=== PATIENT | female | born 1960 | race Hispanic/Latino ===

== ENCOUNTER 2017-07-15 13:19 | Emergency (ER) | payer OTHER ==
[2017-07-15 13:42] VITALS: BMI 24.3
[2017-07-15 13:49] VITALS: RESP 16
--- NOTE | 2017-07-15 13:55 | ED PDOC ---
Arrival/HPI - General Chief Complaint: Bite Time Seen by Provider: 07/15/17 13:37 Historian: Patient - History of Present Illness Narrative History of Present Illness (Text): 07/15/17 13:40 A 56 year old female, whose past medical history includes diabetes, breast cancer (in remission), and hypothyroidism, presents to the emergency department complaining of bug bite. Patient reports she went to sleep 5 days ago and the next day awoke with bite. Patient states she applied creams and hot compresses but bite has gotten progressively worse. Bite was itchy before, but now is sore and painful to the touch. Patient has no other complaints. No PMD Past Medical History - Provider Review Nursing Documentation Reviewed: Yes - Reproductive Menopause: Yes - Cardiac Hx Cardiac Disorders: No Hx Angina: No Hx Cardiac Arrhythmia: No Hx Circulatory Problems: No Hx Congestive Heart Failure: No Hx Heart Murmur: No Hx Heart Transplant: No Hx Hypertension: No Hx Internal Defibrillator: No Hx Mitral Valve Prolapse: No Hx Pacemaker: No Hx Peripheral Edema: No Hx Peripheral Vascular Disease: No - Pulmonary Hx Respiratory Disorders: Yes Hx Asthma: No Hx Bronchitis: Yes Hx Chronic Obstructive Pulmonary Disease (COPD): No Hx Emphysema: No Hx Pneumonia: No Hx Respiratory Aspiration: No Hx Respiratory Tract Infection: No Hx Sleep Apnea: No Hx Tuberculosis: No - Neurological Hx Neurological Disorder: Yes (neuropathy hands and feet) Hx Alzheimer's Disease: No HX Cerebrovascular Accident: No Hx Dementia: No Hx Dizziness: No Hx Meningitis: No Hx Migraine: No Hx Parkinson's Disease: No Hx Seizures: No Hx Transient Ischemic Attacks (TIA): No - HEENT Hx HEENT Disorder: No Hx Blind: No Hx Cataracts: No Hx Deafness: No Hx Difficulty Chewing: No Hx Epistaxis: No Hx Glaucoma: No Hx Macular Degeneration: No - Renal Hx Renal Disorder: No Hx Dialysis: No Hx Kidney Stones: No Hx Neurogenic Bladder: No Hx Pyelonephritis: No Hx Renal Cancer: No Hx Renal Failure: No - Endocrine/Metabolic Hx Endocrine Disorders: Yes Hx Adrenal Cancer: No Hx Diabetes Insipidus: No Hx Diabetes Mellitus Type 1: No Hx Diabetes Mellitus Type 2: Yes Hx Hyperthyroidism: No Hx Hypothyroidism: Yes Hx Systemic Lupus Erythematosus: No - Hematological/Oncological Hx Blood Transfusions: No Hx Cancer: Yes (Breast Ca 2015) - Integumentary Hx Dermatological Disorder: No Hx Basal Cell Carcinoma: No Hx Eczema: No Hx Melanoma: No Hx Psoriasis: No Hx Squamous Cell Carcinoma: No - Musculoskeletal/Rheumatological Hx Falls: Yes (tripped on the sidewalk) - Gastrointestinal Hx Gastrointestinal Disorders: Yes Hx Colostomy: No Hx Crohn's Disease: No Hx Diverticulitis: No Hx Gall Bladder Disease: No Hx Gastroesophageal Reflux: Yes Hx Gastrointestinal Ulcer: No Hx Ileostomy: No Hx Liver Failure: No Hx Pancreatitis: No HX Swallowing Problems: No - Genitourinary/Gynecological Hx Genitourinary Disorders: No Hx Hematuria: No Hx Incontinence: No Hx Prostate Problems: No Hx Sexually Transmitted Diseases: No Hx Urinary Tract Infection: No - Psychiatric Hx Psychophysiologic Disorder: Yes Hx Anxiety: Yes Hx Bipolar Disorder: No Hx Depression: Yes Hx Emotional Abuse: No Hx Hallucinations: No Hx Panic Disorder: No Hx Post Traumatic Stress Disorder: No Hx Psychosis: No Hx Physical Abuse: No Hx Schizophrenia: No Hx Sexual Abuse: No Hx Substance Use: No - Surgical History Hx Breast Biopsy: Yes - Anesthesia Hx Anesthesia Reactions: Yes (NAUSEA) Hx Malignant Hyperthermia: No - Suicidal Assessment Feels Threatened In Home Enviroment: No Family/Social History - Physician Review Nursing Documentation Reviewed: Yes Family/Social History: No Known Family HX Smoking Status: Current Some Days Smoker Hx Alcohol Use: Yes (occassional wine) Frequency of alcohol use: Socially Hx Substance Use: No Allergies/Home Meds Allergies/Adverse Reactions: Allergies No Known Allergies Allergy (Verified 11/25/16 15:22) Home Medications: Home Meds Medication Instructions Recorded Confirmed Insulin Detemir [Levemir] 30 unit SC HS 05/08/14 07/15/17 Exemestane [Aromasin] 25 mg PO DAILY 06/16/16 07/15/17 Gabapentin [Neurontin] 300 mg PO TID 06/16/16 07/15/17 metFORMIN [glucOPHAGE] 500 mg PO TID 06/16/16 07/15/17 Review of Systems - Physician Review All systems were reviewed & negative as marked: Yes - Review of Systems Constitutional: absent: Other (no other complaints ) Skin: Other (bug bite) Physical Exam Vital Signs Reviewed: Yes Vital Signs Temp Pulse Resp BP Pulse Ox 07/15/17 13:42 98.4 F 90 16 115/72 98 Temperature: Afebrile Blood Pressure: Normal Pulse: Regular Respiratory Rate: Normal Appearance: Positive for: Well-Appearing Pain Distress: None Mental Status: Positive for: Alert and Oriented X 3 - Systems Exam Head: Present: Atraumatic, Normocephalic Pupils: Present: PERRL Extroacular Muscles: Present: EOMI Conjunctiva: Present: Normal Mouth: Present: Moist Mucous Membranes Neck: Present: Normal Range of Motion Respiratory/Chest: Present: Clear to Auscultation, Good Air Exchange. No: Respiratory Distress, Accessory Muscle Use Cardiovascular: Present: Regular Rate and Rhythm, Normal S1, S2. No: Murmurs Abdomen: Present: Normal Bowel Sounds. No: Tenderness, Distention, Peritoneal Signs Back: Present: Normal Inspection Upper Extremity: Present: Normal Inspection. No: Cyanosis, Edema Lower Extremity: Present: Normal Inspection. No: Edema Neurological: Present: GCS=15, CN II-XII Intact, Speech Normal Skin: Present: Other (bug bite to abdomen, tender and firm to touch with central darkened area, no discharge.) Psychiatric: Present: Alert, Oriented x 3, Normal Insight, Normal Concentration Medical Decision Making ED Course and Treatment: 07/15/17 13:50 Impression: 56 year old female with bug bite. Plan: -- Reassess and disposition Prior Visits: Notes and results from previous visits were reviewed. Patient was last seen in the emergency department on 11/25/2016 for mid sternal chest pain. Patient was admitted. Progress Notes: 07/15/17 14:57 Abscess bug bite wound opened with Lidocaine 2%, and cleaned with silver nitrate. Patient was able to tolerate procedure well. - Medication Orders Current Medication Orders: Discontinued Medications Bacitracin (Bacitracin) 1 ea TOP STAT STA Stop: 07/15/17 14:53 Lidocaine HCl (Lidocaine 2% 20ml Vial) 2 ml IJ ONCE STA Stop: 07/15/17 14:16 Silver Nitrate (Silver Nitrate Topical Stick) 1 swa TOP ONCE ONE Stop: 07/15/17 14:43 Tetanus/Reduced Diphtheria/Acell Pertussis (Boostrix Vaccine Inj) 0.5 ml IM .ONCE ONE Stop: 07/15/17 14:50 - Scribe Statement The provider has reviewed the documentation as recorded by the Juanito France Provider Scribe Attestation: All medical record entries made by the Scribe were at my direction and personally dictated by me. I have reviewed the chart and agree that the record accurately reflects my personal performance of the history, physical exam, medical decision making, and the department course for this patient. I have also personally directed, reviewed, and agree with the discharge instructions and disposition. Disposition/Present on Arrival - Present on Arrival Any Indicators Present on Arrival: No History of DVT/PE: No History of Uncontrolled Diabetes: No Urinary Catheter: No History of Decub. Ulcer: No History Surgical Site Infection Following: None - Disposition Have Diagnosis and Disposition been Completed?: Yes Diagnosis: Abscess Disposition: HOME/ ROUTINE Disposition Time: 15:00 Patient Problems: Current Active Problems Problem Status Onset Abscess Acute Condition: STABLE Discharge Instructions (ExitCare): Abscess (ED), Abscess (GEN) Additional Instructions: Warm compresses or soaks starting tomorrow. see your doctor or return to ER for increasing swelling or redness. Prescriptions: Amoxicillin/Clavulanate [Augmentin 875 MG-125 MG] 1 tab PO BID #14 tab Forms: [employer] ([place])
[2017-07-15] MEDS ORDERED: Lidocaine 2% Inj (20ml) IJ STA (14:15)
[2017-07-15] MEDS ORDERED: Silver Nitrate Topical - Stick TOP ONE (14:42)
[2017-07-15] MEDS ORDERED: TDAP Vaccine 0.5 mL Syr IM ONE (14:49)
[2017-07-15] MEDS ORDERED: Bacitracin Ointment 30 GM TUBE TOP STA (14:50)
[2017-07-15] MEDS ORDERED: Bacitracin 500 Units/gm Oint Foilpak UD TOP STA (14:52)
[2017-07-15 15:32] VITALS: BP 115/71; PULSE 77; TEMP 98.1; O2SAT 99
== END 2017-07-15 15:20 | disposition home or self-care (01) ==
LOC: ED 13:19
DX: L02.211 Cutaneous abscess of abdominal wall (principal); Z23 Encounter for immunization; E11.9 Type 2 diabetes mellitus without complications; E03.9 Hypothyroidism, unspecified; Z79.4 Long term (current) use of insulin; Z85.3 Personal history of malignant neoplasm of breast

== ENCOUNTER 2017-07-28 17:48 | Emergency (ER) | payer OTHER ==
[2017-07-28 17:49] VITALS: BMI 24.3
--- NOTE | 2017-07-28 17:58 | ED PDOC ---
Arrival/HPI - General Time Seen by Provider: 07/28/17 17:56 Historian: Patient - History of Present Illness Narrative History of Present Illness (Text): 07/28/17 17:58 56 y/o female, pmh including dm/breast cancer in re-emission, nkda, c/o Past Medical History - Cardiac Hx Cardiac Disorders: No Hx Angina: No Hx Cardiac Arrhythmia: No Hx Circulatory Problems: No Hx Congestive Heart Failure: No Hx Heart Murmur: No Hx Heart Transplant: No Hx Hypertension: No Hx Internal Defibrillator: No Hx Mitral Valve Prolapse: No Hx Pacemaker: No Hx Peripheral Edema: No Hx Peripheral Vascular Disease: No - Pulmonary Hx Respiratory Disorders: Yes Hx Asthma: No Hx Bronchitis: Yes Hx Chronic Obstructive Pulmonary Disease (COPD): No Hx Emphysema: No Hx Pneumonia: No Hx Respiratory Aspiration: No Hx Respiratory Tract Infection: No Hx Sleep Apnea: No Hx Tuberculosis: No - Neurological Hx Neurological Disorder: Yes (neuropathy hands and feet) Hx Alzheimer's Disease: No HX Cerebrovascular Accident: No Hx Dementia: No Hx Dizziness: No Hx Meningitis: No Hx Migraine: No Hx Parkinson's Disease: No Hx Seizures: No Hx Transient Ischemic Attacks (TIA): No - HEENT Hx HEENT Disorder: No Hx Blind: No Hx Cataracts: No Hx Deafness: No Hx Difficulty Chewing: No Hx Epistaxis: No Hx Glaucoma: No Hx Macular Degeneration: No - Renal Hx Renal Disorder: No Hx Dialysis: No Hx Kidney Stones: No Hx Neurogenic Bladder: No Hx Pyelonephritis: No Hx Renal Cancer: No Hx Renal Failure: No - Endocrine/Metabolic Hx Endocrine Disorders: Yes Hx Adrenal Cancer: No Hx Diabetes Insipidus: No Hx Diabetes Mellitus Type 1: No Hx Diabetes Mellitus Type 2: Yes Hx Hyperthyroidism: No Hx Hypothyroidism: Yes Hx Systemic Lupus Erythematosus: No - Hematological/Oncological Hx Blood Transfusions: No Hx Cancer: Yes (Breast Ca 2015) - Integumentary Hx Dermatological Disorder: No Hx Basal Cell Carcinoma: No Hx Eczema: No Hx Melanoma: No Hx Psoriasis: No Hx Squamous Cell Carcinoma: No - Musculoskeletal/Rheumatological Hx Falls: Yes (tripped on the sidewalk) - Gastrointestinal Hx Gastrointestinal Disorders: Yes Hx Colostomy: No Hx Crohn's Disease: No Hx Diverticulitis: No Hx Gall Bladder Disease: No Hx Gastroesophageal Reflux: Yes Hx Gastrointestinal Ulcer: No Hx Ileostomy: No Hx Liver Failure: No Hx Pancreatitis: No HX Swallowing Problems: No - Genitourinary/Gynecological Hx Genitourinary Disorders: No Hx Hematuria: No Hx Incontinence: No Hx Prostate Problems: No Hx Sexually Transmitted Diseases: No Hx Urinary Tract Infection: No - Psychiatric Hx Psychophysiologic Disorder: Yes Hx Anxiety: Yes Hx Bipolar Disorder: No Hx Depression: Yes Hx Emotional Abuse: No Hx Hallucinations: No Hx Panic Disorder: No Hx Post Traumatic Stress Disorder: No Hx Psychosis: No Hx Physical Abuse: No Hx Schizophrenia: No Hx Sexual Abuse: No Hx Substance Use: No - Surgical History Hx Breast Biopsy: Yes - Anesthesia Hx Anesthesia Reactions: Yes (NAUSEA) Hx Malignant Hyperthermia: No - Suicidal Assessment Feels Threatened In Home Enviroment: No Family/Social History Smoking Status: Current Some Days Smoker Hx Alcohol Use: Yes (occassional wine) Hx Substance Use: No Allergies/Home Meds Allergies/Adverse Reactions: Allergies No Known Allergies Allergy (Verified 11/25/16 15:22) Home Medications: Home Meds Medication Instructions Recorded Confirmed Insulin Detemir [Levemir] 30 unit SC 05/08/14 07/15/17 Exemestane [Aromasin] 25 mg PO DAILY 06/16/16 07/15/17 Gabapentin [Neurontin] 300 mg PO TID 06/16/16 07/15/17 metFORMIN [glucOPHAGE] 500 mg PO TID 06/16/16 07/15/17 Disposition/Present on Arrival - Present on Arrival History of DVT/PE: No History of Uncontrolled Diabetes: No Urinary Catheter: No History Surgical Site Infection Following: None - Disposition
[2017-07-28 18:10] VITALS: BP 117/74; PULSE 87; RESP 16; TEMP 98.2; O2SAT 98
--- NOTE | 2017-07-28 18:42 | ED PDOC ---
Arrival/HPI - General Chief Complaint: Abnormal Skin Integrity Time Seen by Provider: 07/28/17 17:56 Historian: Patient - History of Present Illness Narrative History of Present Illness (Text): 07/28/17 18:37 56 y/o female, pmh including hypothyroidism/dm/breast cancer, post menopausal, nkda, here for the wound check on the lt. abdomen region. Pt. was seen in the ER which stated that she had I&D done and on augmentin, here for the wound check , no palpitation, no change in vision, no numbness or tingling, no night sweat, no other medical or psychological complaints. Past Medical History - Provider Review Nursing Documentation Reviewed: Yes - Reproductive Menopause: Yes - Cardiac Hx Cardiac Disorders: No Hx Angina: No Hx Cardiac Arrhythmia: No Hx Circulatory Problems: No Hx Congestive Heart Failure: No Hx Heart Murmur: No Hx Heart Transplant: No Hx Hypertension: No Hx Internal Defibrillator: No Hx Mitral Valve Prolapse: No Hx Pacemaker: No Hx Peripheral Edema: No Hx Peripheral Vascular Disease: No - Pulmonary Hx Respiratory Disorders: Yes Hx Asthma: No Hx Bronchitis: Yes Hx Chronic Obstructive Pulmonary Disease (COPD): No Hx Emphysema: No Hx Pneumonia: No Hx Respiratory Aspiration: No Hx Respiratory Tract Infection: No Hx Sleep Apnea: No Hx Tuberculosis: No - Neurological Hx Neurological Disorder: Yes (neuropathy hands and feet) Hx Alzheimer's Disease: No HX Cerebrovascular Accident: No Hx Dementia: No Hx Dizziness: No Hx Meningitis: No Hx Migraine: No Hx Parkinson's Disease: No Hx Seizures: No Hx Transient Ischemic Attacks (TIA): No - HEENT Hx HEENT Disorder: No Hx Blind: No Hx Cataracts: No Hx Deafness: No Hx Difficulty Chewing: No Hx Epistaxis: No Hx Glaucoma: No Hx Macular Degeneration: No - Renal Hx Renal Disorder: No Hx Dialysis: No Hx Kidney Stones: No Hx Neurogenic Bladder: No Hx Pyelonephritis: No Hx Renal Cancer: No Hx Renal Failure: No - Endocrine/Metabolic Hx Endocrine Disorders: Yes Hx Adrenal Cancer: No Hx Diabetes Insipidus: No Hx Diabetes Mellitus Type 1: No Hx Diabetes Mellitus Type 2: Yes Hx Hyperthyroidism: No Hx Hypothyroidism: Yes Hx Systemic Lupus Erythematosus: No - Hematological/Oncological Hx Blood Transfusions: No Hx Cancer: Yes (Breast Ca 2015) - Integumentary Hx Dermatological Disorder: No Hx Basal Cell Carcinoma: No Hx Eczema: No Hx Melanoma: No Hx Psoriasis: No Hx Squamous Cell Carcinoma: No - Musculoskeletal/Rheumatological Hx Falls: Yes - Gastrointestinal Hx Gastrointestinal Disorders: Yes Hx Colostomy: No Hx Crohn's Disease: No Hx Diverticulitis: No Hx Gall Bladder Disease: No Hx Gastroesophageal Reflux: Yes Hx Gastrointestinal Ulcer: No Hx Ileostomy: No Hx Liver Failure: No Hx Pancreatitis: No HX Swallowing Problems: No - Genitourinary/Gynecological Hx Genitourinary Disorders: No Hx Hematuria: No Hx Incontinence: No Hx Prostate Problems: No Hx Sexually Transmitted Diseases: No Hx Urinary Tract Infection: No - Psychiatric Hx Psychophysiologic Disorder: Yes Hx Anxiety: Yes Hx Bipolar Disorder: No Hx Depression: Yes Hx Emotional Abuse: No Hx Hallucinations: No Hx Panic Disorder: No Hx Post Traumatic Stress Disorder: No Hx Psychosis: No Hx Physical Abuse: No Hx Schizophrenia: No Hx Sexual Abuse: No Hx Substance Use: No - Surgical History Hx Breast Biopsy: Yes - Anesthesia Hx Anesthesia Reactions: Yes (NAUSEA) Hx Malignant Hyperthermia: No - Suicidal Assessment Feels Threatened In Home Enviroment: No Family/Social History - Physician Review Nursing Documentation Reviewed: Yes Family/Social History: Unknown Family HX Smoking Status: Current Some Days Smoker Hx Alcohol Use: Yes (occassional wine) Hx Substance Use: No Allergies/Home Meds Allergies/Adverse Reactions: Allergies No Known Allergies Allergy (Verified 07/28/17 18:02) Home Medications: Home Meds Medication Instructions Recorded Confirmed Insulin Detemir [Levemir] 30 unit SC HS 05/08/14 07/28/17 Exemestane [Aromasin] 25 mg PO DAILY 06/16/16 07/28/17 Gabapentin [Neurontin] 300 mg PO TID 06/16/16 07/28/17 metFORMIN [glucOPHAGE] 500 mg PO TID 06/16/16 07/28/17 Review of Systems - Review of Systems Constitutional: absent: Fatigue, Fevers Eyes: absent: Vision Changes ENT: absent: Hearing Changes Respiratory: absent: SOB, Cough Cardiovascular: absent: Chest Pain Gastrointestinal: absent: Abdominal Pain, Nausea, Vomiting Skin: Rash, Skin Lesions. absent: Pruritis, Laceration, Abscess, Ulcer, Cellulitis Neurological: absent: Headache, Dizziness Endocrine: absent: Diaphoresis Psychiatric: absent: Anxiety, Depression, Suicidal Ideation Physical Exam Vital Signs Reviewed: Yes Vital Signs Temp Pulse Resp BP Pulse Ox 07/28/17 18:04 98.2 F 87 16 117/74 98 Temperature: Afebrile Blood Pressure: Normal Pulse: Regular Respiratory Rate: Normal Appearance: Positive for: Well-Appearing, Non-Toxic, Comfortable Pain Distress: Mild Mental Status: Positive for: Alert and Oriented X 3 - Systems Exam Head: Present: Atraumatic, Normocephalic Pupils: Present: PERRL Extroacular Muscles: Present: EOMI Conjunctiva: Present: Normal Mouth: Present: Moist Mucous Membranes Neck: Present: Normal Range of Motion Respiratory/Chest: Present: Clear to Auscultation, Good Air Exchange. No: Respiratory Distress, Accessory Muscle Use Cardiovascular: Present: Regular Rate and Rhythm, Normal S1, S2. No: Murmurs Abdomen: Present: Normal Bowel Sounds. No: Tenderness, Distention, Peritoneal Signs Back: Present: Normal Inspection Upper Extremity: Present: Normal Inspection. No: Cyanosis, Edema Lower Extremity: Present: Normal Inspection. No: Edema Neurological: Present: GCS=15, Speech Normal, Motor Func Grossly Intact, Gait Normal, Memory Normal Skin: Present: Warm, Dry, Rashes (Lt. abdomen region visible healing and resolved abscess with hard nodule skin lump noted approx. [id number] noted, no cellulitis or streaking, no ulcers. ), Normal Color Psychiatric: Present: Alert, Oriented x 3, Normal Insight, Normal Concentration Medical Decision Making ED Course and Treatment: 07/28/17 18:40 -Wound healing well and dry, not completely healed, no systemic signs of infection, will add clindamycin for MRSA coverage as she completed the augmentin already. -Bed side sonogram performed by pa and show no visible abscess fluid fill cavity noted. -Discharge home with clindamycin, take tylenol for pain as needed, follow up with your own pmd and metal riveter within 2 days, return to the ER for any new or worsening signs or symptoms. - PA / OFFICE ADMINISTRATIVE ASSISTANT / Resident Statement MD/DO has reviewed & agrees with the documentation as recorded. Disposition/Present on Arrival - Present on Arrival Any Indicators Present on Arrival: No History of DVT/PE: No History of Uncontrolled Diabetes: Yes Urinary Catheter: No History of Decub. Ulcer: No History Surgical Site Infection Following: None - Disposition Have Diagnosis and Disposition been Completed?: Yes Diagnosis: Visit for wound check Disposition: HOME/ ROUTINE Disposition Time: 19:03 Patient Plan: Discharge Patient Problems: Current Active Problems Problem Status Onset Visit for wound check Acute Condition: GOOD Additional Instructions: -Discharge home with clindamycin, take tylenol for pain as needed, follow up with your own pmd and metal riveter within 2 days, return to the ER for any new or worsening signs or symptoms. Prescriptions: Clindamycin [Cleocin] 300 mg PO TID #21 cap Referrals: Kaleb Gamez MD [Staff Provider] - Follow up with primary Forms: WORK NOTE
== END 2017-07-28 19:44 | disposition home or self-care (01) ==
LOC: ED 17:48
DX: Z51.89 Encounter for other specified aftercare (principal)

== ENCOUNTER 2018-03-22 08:12 | Emergency (ER) | payer OTHER ==
--- NOTE | 2018-03-22 08:42 | ED PDOC ---
Arrival/HPI - General Chief Complaint: Bite Time Seen by Provider: 03/22/18 08:28 Historian: Patient - History of Present Illness Narrative History of Present Illness (Text): 03/22/18 08:38 57 year old female, whose past medical history includes diabetes, breast cancer (in remission), and hypothyroidism, presents to the emergency department with a wound on right elbow, secondary to bug bite from 1 week prior. Patient states she was possibly bit outdoors. Patient states the wound was initially small, similar to a mosquito bite, and progressively became worse. Patient states she tried using Neosporin and bathing in hot water, with no relief of symptoms. Patient denies any fever, chills, headache, dizziness, chest pain, shortness of breath, cough, abdominal pain, nausea, vomiting, diarrhea, back pain, neck pain , urinary/bowel changes, or any other complaint. Time/Duration: 1 week Symptom Onset: Gradual Symptom Course: Unchanged Activities at Onset: Light Context: Home Past Medical History - Provider Review Nursing Documentation Reviewed: Yes - Infectious Disease Hx of Infectious Diseases: None - Reproductive Menopause: Yes - Cardiac Hx Cardiac Disorders: No - Pulmonary Hx Respiratory Disorders: Yes Hx Bronchitis: Yes - Neurological Hx Neurological Disorder: Yes (neuropathy hands and feet) - HEENT Hx HEENT Disorder: No - Renal Hx Renal Disorder: No - Endocrine/Metabolic Hx Endocrine Disorders: Yes Hx Diabetes Mellitus Type 2: Yes Hx Hypothyroidism: Yes - Hematological/Oncological Hx Cancer: Yes (Breast Ca 2014) - Integumentary Hx Dermatological Disorder: No - Musculoskeletal/Rheumatological Hx Falls: Yes - Gastrointestinal Hx Gastrointestinal Disorders: Yes Hx Gastroesophageal Reflux: Yes - Genitourinary/Gynecological Hx Genitourinary Disorders: No - Psychiatric Hx Psychophysiologic Disorder: Yes Hx Anxiety: Yes Hx Depression: Yes Hx Substance Use: No - Surgical History Hx Breast Biopsy: Yes - Anesthesia Hx Anesthesia Reactions: Yes (NAUSEA) Hx Malignant Hyperthermia: No - Suicidal Assessment Feels Threatened In Home Enviroment: No Family/Social History - Physician Review Nursing Documentation Reviewed: Yes Family/Social History: No Known Family HX Smoking Status: Current Some Days Smoker Hx Alcohol Use: Yes (occassional wine) Hx Substance Use: No Allergies/Home Meds Allergies/Adverse Reactions: Allergies No Known Allergies Allergy (Verified 07/28/17 18:02) Home Medications: Home Meds Medication Instructions Recorded Confirmed Insulin Detemir [Levemir] 30 unit SC HS 05/08/14 03/22/18 Exemestane [Aromasin] 25 mg PO DAILY 06/16/16 03/22/18 Gabapentin [Neurontin] 300 mg PO TID 06/16/16 03/22/18 metFORMIN [glucOPHAGE] 500 mg PO TID 06/16/16 03/22/18 Review of Systems - Physician Review All systems were reviewed & negative as marked: Yes - Review of Systems Constitutional: Normal. absent: Fevers, Night Sweats Eyes: Normal ENT: Normal Respiratory: Normal. absent: SOB, Cough Cardiovascular: Normal. absent: Chest Pain Gastrointestinal: Normal. absent: Abdominal Pain, Diarrhea, Nausea, Vomiting Genitourinary Female: Normal. absent: Urine Output Changes Musculoskeletal: Normal. absent: Back Pain, Neck Pain Skin: Normal Neurological: Normal. absent: Headache, Dizziness Endocrine: Normal Hemo/Lymphatic: Normal Psychiatric: Normal Physical Exam - Physical Exam Narrative Physical Exam (Text): 03/22/18 08:37 Gen: VS reviewed, alert, well developed, well nourished, nontoxic, mild distress. ENT: normal pharynx. Eye: EOMI, PERRL. Neck: no JVD, supple, no adenopathy. CV: regular rate, regular rhythm, no rubs, no murmur, no gallops, S1, S2, pulses equal and strong. Pulm: no distress, clear to auscultation, no wheeze, no rhonchi, breath sounds equal, no rales. Abd: soft, nontender, no guarding, no rebound, no rigidity, normal bowel sounds. Ext: Full range of motion at elbow, no tenderness over olecranon. 2cm area of induration without fluctuance just proximal to olecranon, central area of clear discharge, no significant surrounding cellulitic changes, no red streaks extending up arm Skin: good color, no cyanosis. Psych: responds appropriately to questions, normal affect. Neuro: oriented x 3, CN2-12 intact grossly, motor intact, sensation intact. Vital Signs Reviewed: Yes Vital Signs Temp Pulse Resp BP Pulse Ox 03/22/18 08:55 97.6 F 76 18 118/68 98 03/22/18 08:43 78 18 99 03/22/18 08:13 97.9 F 110 H 25 H 102/67 97 Temperature: Afebrile Blood Pressure: Normal Pulse: Regular Respiratory Rate: Normal Appearance: Positive for: Well-Appearing, Non-Toxic, Comfortable Pain Distress: None Mental Status: Positive for: Alert and Oriented X 3 Medical Decision Making ED Course and Treatment: 03/22/18 08:43 Impression: 57 year old female presents to the emergency department with a wound secondary to a bug bite. Plan: -- Reassess and disposition Prior Visits: Notes and results from previous visits were reviewed. Patient was last seen in the emergency department on Progress Notes: 03/22/18 17:22 patient was seen for right elbow cellulitis without clear clinical evidence of abscess. patient was empirically tx with abx and discharged in stable condition. there was no clinical involement of the joint or bursa. patient to return for any new or worsening symptoms and was agreeable to plan at time of discharge. - Scribe Statement The provider has reviewed the documentation as recorded by the Scribe Anish Silva All medical record entries made by the Scribe were at my direction and personally dictated by me. I have reviewed the chart and agree that the record accurately reflects my personal performance of the history, physical exam, medical decision making, and the department course for this patient. I have also personally directed, reviewed, and agree with the discharge instructions and disposition. Disposition/Present on Arrival - Present on Arrival Any Indicators Present on Arrival: No History of DVT/PE: No History of Uncontrolled Diabetes: Yes Urinary Catheter: No History of Decub. Ulcer: No History Surgical Site Infection Following: None - Disposition Have Diagnosis and Disposition been Completed?: Yes Diagnosis: Cellulitis Disposition: HOME/ ROUTINE Disposition Time: 17:25 Condition: STABLE Discharge Instructions (ExitCare): Cellulitis (ED) Prescriptions: Cephalexin [cephalexin] 500 mg PO QID 7 Days #28 cap Sulfamethoxazole/Trimethoprim [Bactrim Ds Tablet] 1 each PO BID #14 tablet Referrals: Colby Aguila MD [Primary Care Provider] - Follow up with primary Forms: [employer] ([place])
[2018-03-22 08:44] VITALS: RESP 18
[2018-03-22 08:56] VITALS: BP 118/68; PULSE 76; TEMP 97.6; O2SAT 98
== END 2018-03-22 08:55 | disposition home or self-care (01) ==
LOC: ED 08:12
DX: L03.113 Cellulitis of right upper limb (principal)

== ENCOUNTER 2018-07-24 10:35 | Emergency (ER) | payer OTHER ==
[2018-07-24 11:00] VITALS: RESP 18
[2018-07-24] MEDS ORDERED: Sodium Chloride 0.9% 1,000 ML IV STA (11:51)
[2018-07-24 12:15] LABS: BASO # 0.03 K/mm3 (0.0-2.0); BASO % 0.6 % (0.0-3.0); EOS # 0.2 (0.0-0.7); EOS % 3.3 % (1.5-5.0); GRAN # 3.06 (1.4-6.5); GRAN % 62.5 % (50.0-68.0); HEMOGLOBIN 12.9 g/dL (12.0-16.0); LYMPH # 1.3 (1.2-3.4); LYMPH % 26.3 % (22.0-35.0); MEAN CORPUSCULAR HEMOGLOBIN 29.9 pg (25.0-35.0); MEAN CORPUSCULAR HGB CONC 32.9 g/dl (31.0-37.0); MEAN PLATELET VOLUME 9.5 fl (7.0-11.0); MONO # 0.4 (0.1-0.6); MONO % 7.3 % (1.0-6.0); RBC 4.31 10^6/uL (3.5-6.1); WHITE BLOOD COUNT 4.9 10^3/uL (4.5-11.0)
[2018-07-24 12:29] LABS: ALB/GLOB RATIO 1.4 (1.1-1.8); ALBUMIN 4.1 g/dL (3.0-4.8); ALT/SGPT 30 U/L (7-56); AST/SGOT 21 U/L (14-36); BLOOD UREA NITROGEN 8 mg/dL (7-21); CALCIUM 9.2 mg/dL (8.4-10.5); GFR NON-AFRICAN AMERICAN > 60
--- NOTE | 2018-07-24 12:45 | ED PDOC ---
Arrival/HPI - General Chief Complaint: Cough, Cold, Congestion Time Seen by Provider: 07/24/18 11:07 Historian: Patient - History of Present Illness Narrative History of Present Illness (Text): 07/24/18 12:41 A 57 year old female, whose past medical history includes diabetes and breast CA, presents to the emergency department with a complaint of 2 day duration cough, sore throat, nasal congestion, myalgias, and subjective fevers. The patient states that her cough is dry, but occasionally notices white sputum. She reports no difficulty swallowing. Patient has not taken any medication at home. She reports positive sick contact at work. The patient denies chills, headache, dizziness, chest pain, shortness of breath, dyspnea on exertion, abdominal pain, nausea, vomiting, diarrhea, back pain, neck pain, urinary/bowel changes, or any other complaint. Time/Duration: Other (2 days) Symptom Onset: Sudden Symptom Course: Unchanged Activities at Onset: Rest, Light Context: Work Past Medical History - Provider Review Nursing Documentation Reviewed: Yes - Travel History Have you recently traveled outside [place] w/in the past 3 mons?: No - Infectious Disease Hx of Infectious Diseases: None - Tetanus Immunization Tetanus Immunization: Unknown - Cardiac Hx Cardiac Disorders: No - Pulmonary Hx Respiratory Disorders: Yes Hx Bronchitis: Yes - Neurological Hx Neurological Disorder: Yes (neuropathy hands and feet) - HEENT Hx HEENT Disorder: No - Renal Hx Renal Disorder: No - Endocrine/Metabolic Hx Endocrine Disorders: Yes Hx Diabetes Mellitus Type 2: Yes Hx Hypothyroidism: Yes - Hematological/Oncological Hx Cancer: Yes (Breast Ca 2014) - Integumentary Hx Dermatological Disorder: No - Musculoskeletal/Rheumatological Hx Falls: Yes - Gastrointestinal Hx Gastrointestinal Disorders: Yes Hx Gastroesophageal Reflux: Yes - Genitourinary/Gynecological Hx Genitourinary Disorders: No - Psychiatric Hx Psychophysiologic Disorder: Yes Hx Anxiety: Yes Hx Depression: Yes Hx Substance Use: No - Surgical History Hx Breast Biopsy: Yes Other/Comment: Left mastectomy - Anesthesia Hx Anesthesia Reactions: Yes (NAUSEA) Hx Malignant Hyperthermia: No - Suicidal Assessment Feels Threatened In Home Enviroment: No Family/Social History - Physician Review Nursing Documentation Reviewed: Yes Family/Social History: No Known Family HX Smoking Status: Current Some Days Smoker Hx Alcohol Use: Yes (occassional wine) Frequency of alcohol use: Socially Hx Substance Use: No Allergies/Home Meds Allergies/Adverse Reactions: Allergies No Known Allergies Allergy (Verified 07/28/17 18:02) Home Medications: Home Meds Medication Instructions Recorded Confirmed Insulin Detemir [Levemir] 30 unit SC HS 05/08/14 07/24/18 Exemestane [Aromasin] 25 mg PO DAILY 06/16/16 07/24/18 Gabapentin [Neurontin] 300 mg PO TID 06/16/16 07/24/18 metFORMIN [glucOPHAGE] 500 mg PO TID 06/16/16 07/24/18 Review of Systems - Physician Review All systems were reviewed & negative as marked: Yes - Review of Systems Constitutional: Fevers ENT: Sore Throat, Sinus Congestion Respiratory: Cough. absent: SOB Cardiovascular: absent: Chest Pain, Palpitations Gastrointestinal: absent: Abdominal Pain, Constipation, Diarrhea, Nausea, Vomiting Genitourinary Female: absent: Dysuria, Frequency, Hematuria Musculoskeletal: Myalgias. absent: Arthralgias, Back Pain, Neck Pain Skin: absent: Rash, Pruritis Neurological: absent: Headache, Dizziness Psychiatric: absent: Anxiety, Depression Physical Exam Vital Signs Reviewed: Yes Vital Signs Temp Pulse Resp BP Pulse Ox 07/24/18 10:58 98.2 F 86 18 132/83 97 Temperature: Afebrile Blood Pressure: Normal Pulse: Regular Respiratory Rate: Normal Appearance: Positive for: Well-Appearing, Non-Toxic, Comfortable Pain Distress: None Mental Status: Positive for: Alert and Oriented X 3 - Systems Exam Head: Present: Atraumatic, Normocephalic Pupils: Present: PERRL Extroacular Muscles: Present: EOMI Conjunctiva: Present: Normal Ears: Present: Normal, NORMAL TM Mouth: Present: Moist Mucous Membranes Pharnyx: Present: Normal Nose (External): Present: Atraumatic Nose (Internal): Present: Normal Inspection Neck: Present: Normal Range of Motion Respiratory/Chest: Present: Clear to Auscultation, Good Air Exchange. No: Respiratory Distress, Accessory Muscle Use Cardiovascular: Present: Regular Rate and Rhythm, Normal S1, S2. No: Murmurs Abdomen: No: Tenderness, Distention, Peritoneal Signs, Rebound, Guarding Back: Present: Normal Inspection Upper Extremity: Present: Normal Inspection. No: Cyanosis, Edema Lower Extremity: Present: Normal Inspection. No: Edema Neurological: Present: GCS=15, Speech Normal Skin: Present: Warm, Dry, Normal Color. No: Rashes Psychiatric: Present: Alert, Oriented x 3 Medical Decision Making ED Course and Treatment: 07/24/18 14:14 Patient is nontoxic well-appearing in no distress. Vital signs are stable. CBC within normal limits CMP glucose 328 Patient given 1 L normal saline IV bolus Tylenol 975 given by mouth Toradol 30 given IV rapid flu negative Chest x-ray shows no infiltrate or effusion no cardiomegaly Tamiflu given by mouth Patient reassessment: Patient feeling better. Vital signs are stable. I advised the patient that her sugar is elevated. Patient states she figured her sugar would be elevated because she had a piece of cake and had other sweets today I advised follow up with primary care physician within the next 2 days. I adv ised increase fluids and return if symptoms worsen persist or if new symptoms develop.patient was advised to take Tamiflu as prescribed. Patient verbalizes understanding of discharge instructions and need for immediate followup. IMPRESSION: influenza Motrin one tablet every 6 hours as needed for pain tamiflu; twice daily x 5 days Increase fluids Followup with primary care physician the next 2 days Return if symptoms worsen persist or if new symptoms develop Reassessment Condition: Re-examined, Improved - Lab Interpretations Lab Results: 07/24/18 11:53 07/24/18 11:53 Lab Results 07/24/18 11:53: WBC 4.9, RBC 4.31, Hgb 12.9, Hct 39.2, MCV 91.0, MCH 29.9, MCHC 32.9, RDW 12.0, Plt Count 226, MPV 9.5, Gran % 62.5, Lymph % (Auto) 26.3, [place] % (Auto) 7.3 H, Eos % (Auto) 3.3, Baso % (Auto) 0.6, Gran # 3.06, Lymph # (Auto) 1.3, [place] # (Auto) 0.4, Eos # (Auto) 0.2, Baso # (Auto) 0.03 07/24/18 11:53: Sodium 134, Potassium 4.8, Chloride 100, Carbon Dioxide 25, Anion Gap 14, BUN 8, Creatinine 0.5 L, Est GFR ( Amer) > 60, Est GFR (Non-Af Amer) > 60, Random Glucose 328 H* D, Calcium 9.2, Total Bilirubin 0.3, AST 21, ALT 30, Alkaline Phosphatase 91, Total Protein 7.0, Albumin 4.1, Globulin 2.9, Albumin/Globulin Ratio 1.4 - RAD Interpretation Radiology Orders: 07/24/18 11:50 CHEST TWO VIEWS (PA/LAT) [RAD] Stat - Medication Orders Current Medication Orders: Sodium Chloride (Sodium Chloride 0.9%) 1,000 mls @ 999 mls/hr IV .Q1H1M STA Stop: 07/24/18 12:51 Last Admin: 07/24/18 12:08 Dose: 999 mls/hr eMAR Start Stop Document 07/24/18 12:08 LA (Rec: 07/24/18 12:09 LA [id number]) Intravenous Solution Start Date 07/24/18 Start Time 12:09 End Date 07/24/18 End time 13:10 Total Infusion Time 61 Discontinued Medications Acetaminophen (Tylenol 325mg Tab) 975 mg PO STAT STA Stop: 07/24/18 11:52 Last Admin: 07/24/18 12:09 Dose: 975 mg MAR Pain/Vitals Document 07/24/18 12:09 LA (Rec: 07/24/18 12:10 LA [id number]) Pain Reassessment Is This A Pain ReAssessment? No Pain Scale Used Protocol: PSCALES Pain Scale Used Numeric - Scribe Statement The provider has reviewed the documentation as recorded by the Scribe Ruthy Newell Provider Scribe Attestation: All medical record entries made by the Scribe were at my direction and personally dictated by me. I have reviewed the chart and agree that the record accurately reflects my personal performance of the history, physical exam, medical decision making, and the department course for this patient. I have also personally directed, reviewed, and agree with the discharge instructions and disposition. a Disposition/Present on Arrival - Present on Arrival Any Indicators Present on Arrival: Yes History of DVT/PE: No History of Uncontrolled Diabetes: Yes Urinary Catheter: No History of Decub. Ulcer: No History Surgical Site Infection Following: None - Disposition Have Diagnosis and Disposition been Completed?: Yes Diagnosis: Influenza Disposition: HOME/ ROUTINE Disposition Time: 14:00 Patient Plan: Discharge Patient Problems: Current Active Problems Problem Status Onset Influenza Acute Condition: GOOD Discharge Instructions (ExitCare): Flu, Adult (DC) Additional Instructions: Motrin one tablet every 6 hours as needed for pain Tamiflu; twice daily x 5 days Increase fluids Followup with primary care physician the next 2 days Return if symptoms worsen persist or if new symptoms develop Prescriptions: Ibuprofen [Motrin] 600 mg PO Q6H PRN #20 tab PRN Reason: pain/fever reduction Oseltamivir Cap [Tamiflu] 75 mg PO BID #10 cap Referrals: Colby Aguila MD [Primary Care Provider] - Follow up with primary Forms: [employer] ([place]), WORK NOTE
--- NOTE | 2018-07-24 12:51 | RAD ---
HISTORY: cough COMPARISON: Chest x-ray performed 11/25/16 TECHNIQUE: Chest PA and lateral FINDINGS: LUNGS: No focal consolidation. Please note that chest x-ray has limited sensitivity for the detection of pulmonary masses. PLEURA: No significant pleural effusion identified. No definite pneumothorax . CARDIOVASCULAR: Heart size appears within normal limits. No atherosclerotic calcification present. OSSEOUS STRUCTURES: No acute osseous abnormality identified. VISUALIZED UPPER ABDOMEN: Unremarkable. OTHER FINDINGS: None. IMPRESSION: No focal consolidation.
[2018-07-24 14:48] VITALS: BP 135/81; PULSE 63; TEMP 98.7; O2SAT 99
== END 2018-07-24 14:49 | disposition home or self-care (01) ==
LOC: ED 10:35
DX: J11.1 Influenza due to unidentified influenza virus with other respiratory manifestations (principal); E11.9 Type 2 diabetes mellitus without complications; E03.9 Hypothyroidism, unspecified; Z85.3 Personal history of malignant neoplasm of breast
CPT/HCPCS: 71046; 80053; 82948; 85025; 87804; 96360; 99283; J7030

== ENCOUNTER 2018-08-12 09:03 | Outpatient (CLI) | payer OTHER | END 2018-08-12 09:04 | disposition home or self-care (01) | LOC: LAB 09:03 ==

== ENCOUNTER 2018-10-25 13:20 | Outpatient (CLI) | payer MEDICAID | END 2018-10-25 13:21 | disposition home or self-care (01) | LOC: RAD 13:20 ==